=== PATIENT | female | born 1985 | race Caucasian/White ===

== ENCOUNTER 2016-08-25 20:14 | Emergency (ER) | payer BC ==
--- NOTE | ~2016-08-25 | ER ---
PATIENT'S NAME: RUPERT XIONG [facility] AGE: 30 Y [address] ROOM: [place] [address] LOCATION: [facility] ADMIT DATE: 08/25/2016 ER/Outpatient Report DISCHARGE DATE: 08/25/2016 FAMILY PHYSICIAN: Joce Arias MD ATTENDING PHYSICIAN: Wilman Domínguez TIME OF ARRIVAL: 2026 hours. TIME OF EXAM: 2026. CHIEF COMPLAINT: Headache. HISTORY OF PRESENT ILLNESS: The patient states approximately 4 hours prior to arrival she began having a frontal headache. She states that she took some migraine headache around 6 o'clock. She continues to have quite a bit of discomfort and throbbing type sensation. She is nauseated, has not vomited. Does have photophobia. She states this is similar to headaches that she has had in the past. States it has been awhile since she has had a headache to this magnitude. ALLERGIES: NO KNOWN ALLERGIES. CURRENT MEDICATIONS: Current medications are on her chart and reviewed by me. PAST MEDICAL HISTORY: Depression. PAST SURGERIES: Cholecystectomy and endometriosis. SOCIAL HISTORY: Denies use of tobacco, drugs, or alcohol on a regular basis. REVIEW OF SYSTEMS: All negative other than those mentioned in the HPI. PHYSICAL EXAMINATION: VITAL SIGNS: She weighed 93.1 kg. Blood pressure is 125/73, pulse is 68, respirations 16, temp of 98.5, and O2 sats 99% on room air. GENERAL: She is awake, alert, and oriented x4. PATIENT'S NAME: RUPERT XIONG [facility] AGE: 30 Y [address] ROOM: [place] [address] LOCATION: [facility] ADMIT DATE: 08/25/2016 ER/Outpatient Report DISCHARGE DATE: 08/25/2016 FAMILY PHYSICIAN: Joce Arias MD ATTENDING PHYSICIAN: Wilman Domínguez SKIN: [place], warm, and dry. RESPIRATIONS: Even and nonlabored. HEENT: Pupils are equal and reactive to light. Extraocular movement is intact. Negative nystagmus. Nasal is boggy. Oral is clear. NECK: Supple. No lymphadenopathy. LUNGS: Lung sounds are clear throughout. HEART: Regular rate and rhythm. NEURO: The patient walked in with a steady even gait. Moves all extremities strongly and equally. EMERGENCY DEPARTMENT COURSE: The patient was given Toradol 60 mg IM and Phenergan 50 mg IM. IMPRESSION: Headache. PLAN: Home, rest, fluids, continue her current medications. Follow up with her primary provider in 2-3 days. She is welcome to return to the ER as needed. She verbalized understanding. ANGELINA CANO APRN FOR MD ENRRIQUE ACEVEDO/meet /[id number] d: 08/26/16140 t: 08/31/16 1113, OUTPATIENT REPORT
== END 2016-08-25 20:54 | disposition disaster alternative care site (69) ==
LOC: GMED 20:14
DX: R51 Headache (principal); F32.9 Major depressive disorder, single episode, unspecified; Z90.49 Acquired absence of other specified parts of digestive tract
CPT/HCPCS: J1885; J2550